=== PATIENT | female | born 1990 | race Caucasian/White ===

== ENCOUNTER 2017-04-24 04:25 | Inpatient (IN) | payer BC, OTHER ==
[2017-04-24] MEDS: DEXTROSE 5%-LACTATED RINGERS 1,000 ML IV SCH (08:00)
[2017-04-24] MEDS ORDERED: AMPICILLIN - 2 GM in SODIUM CHLORIDE 100 ML IVPB ONE (08:10)
[2017-04-24 08:48] LABS: BASOPHIL 0.4 % (0-2.0); EOSINOPHIL 0.3 % (0-4.5); MCH 29.4 pg (25.7-33.7); MCHC 32.8 g/dl (32.0-36.0); MEAN CELL VOLUME 89.7 fl (80-96); MEAN PLT VOLUME 10.4 fl (7.5-11.1); NEUTROPHILS 77.9 % (42.8-82.8); PLATELET COUNT 177 K/MM3 (134-434); WHITE BLOOD COUNT 8.8 K/mm3 (4.0-10.0)
[2017-04-24] MEDS ORDERED: TUBERCULIN PPD 5 TU/0.1ML SYRINGE (IN PATIENT USE ONLY) ID ONE (09:00)
[2017-04-24 09:10] LABS: INR 0.88 (0.82-1.09); PROTHROMBIN TIME (PATIENT) 9.6 SEC (9.98-11.88)
[2017-04-24 09:11] LABS: ANION GAP 10 (8-16); CALCIUM 9.1 mg/dL (8.5-10.1); CO2 25 mmol/L (21-32); CREATININE 0.5 mg/dL (0.55-1.02); GLUCOSE,RANDOM 90 mg/dL (74-106)
[2017-04-24 09:13] LABS: ACTIVATED PTT 28.4 SECONDS (26.9-34.4)
[2017-04-24 09:33] VITALS: BMI 28.4
[2017-04-24] MEDS ORDERED: OXYTOCIN 15 UNITS/ LR 250 ML 250 ML IVPB SCH (11:00)
[2017-04-24] MEDS: AMPICILLIN - 1 GM in SODIUM CHLORIDE 100 ML IVPB SCH ×3 (12:15→20:00)
--- NOTE | 2017-04-24 13:55 | PN ---
Progress Note (short form) - Note Progress Note: 26 yo , @ 40 weeks gestation, admitted for labor pain , seen and evaluate. She c/o moderate discomfort. FHR : Rassuring Widener : + contractions VE : /-1 A/P Post dates Pitocin augmentation Anticipate Analgesia as needed
[2017-04-24] MEDS ORDERED: FENTANYL/BUPIVACAINE/NS/PF - PCEA - 50 ML DISP.SYRIN EP SCH (15:45)
[2017-04-24] MEDS ORDERED: ELECTROLYTE-148 SOLN 500 ML IV SCH ×2 (16:45→17:45)
--- NOTE | 2017-04-24 17:57 | PN ---
Ante-Partal Exam - Subjective Vital Signs: Vital Signs Temperature 98.0 F 04/24/17 16:00 Pulse Rate 71 04/24/17 17:30 Respiratory Rate 16 04/24/17 17:30 Blood Pressure 100/59 04/24/17 17:30 O2 Sat by Pulse Oximetry (%) 96 04/24/17 17:30 Bleeding: No Headache: No Visual changes: No Right upper quadrant pain: No - Contractions Contractions: No Intensity: Mild Monitor Mode: External - Exam during Labor Heart Rate: 150 Variability: Absent Category: I Monitor Decelerations: None Exam: Vaginal Dilatation (cm): 8 Effacement (%): 100 Amniotic Membrane Status: Ruptured Nitrazine Test: Positive Amniotic Fluid: Clear Meconium Staining: Light Presentation: Vertex - Assessment/Plan Assessment/Plan: as above admit labs expect
--- NOTE | 2017-04-24 19:46 | PN ---
Ante-Partal Exam - Subjective Vital Signs: Vital Signs Temperature 98.2 F 04/24/17 18:00 Pulse Rate 73 04/24/17 18:45 Respiratory Rate 18 04/24/17 18:45 Blood Pressure 109/67 04/24/17 18:45 O2 Sat by Pulse Oximetry (%) 100 04/24/17 18:45 Bleeding: No Headache: No Visual changes: No Right upper quadrant pain: No - Contractions Contractions: Yes Regularity: Regular Intensity: Mild/Mod Monitor Mode: External - Exam during Labor Heart Rate: 150 Variability: Moderate Heart Rate Location: Midline Category: I Monitor Accelerations: Present Monitor Decelerations: None Exam: Vaginal Dilatation (cm): 10 Effacement (%): 100 Amniotic Membrane Status: Ruptured Nitrazine Test: Positive Amniotic Fluid: Clear Meconium Staining: Light Presentation: Vertex Station: 0 - Assessment/Plan Assessment/Plan: as above expect continue care
--- NOTE | 2017-04-24 20:35 | PN ---
Ante-Partal Exam - Subjective Vital Signs: Vital Signs Temperature 98.2 F 04/24/17 18:00 Pulse Rate 73 04/24/17 18:45 Respiratory Rate 18 04/24/17 18:45 Blood Pressure 109/67 04/24/17 18:45 O2 Sat by Pulse Oximetry (%) 100 04/24/17 18:45 Bleeding: No Headache: No Visual changes: No Right upper quadrant pain: No - Contractions Contractions: Yes Regularity: Regular Intensity: Mild/Mod Monitor Mode: External - Exam during Labor Heart Rate: 150 Variability: Minimal Heart Rate Location: [facility] Category: I Monitor Accelerations: Present Monitor Decelerations: None Exam: Vaginal Dilatation (cm): 10 Effacement (%): 100 Amniotic Membrane Status: Intact Nitrazine Test: Positive Amniotic Fluid: Clear Meconium Staining: Light Presentation: Vertex - Assessment/Plan Assessment/Plan: as above pushing now continue care expect nvsd
[2017-04-24] MEDS ORDERED: WITCH HAZEL 50% (TUCKS) 40 PAD/JAR PAD TP PRN (21:16)
[2017-04-24] MEDS ORDERED: BENZOCAINE 28 GM HEMORRHOIDAL OINTMENT TP PRN (21:16)
[2017-04-24] MEDS ORDERED: BENZOCAINE 20% 57 GM BOTTLE TP PRN (21:16)
[2017-04-24] MEDS ORDERED: METHYLERGONOVINE MALEATE 0.2 MG/1 ML AMP IM PRN (21:16)
[2017-04-24] MEDS ORDERED: BISACODYL 10 MG SUPP.RECT RC PRN (21:16)
--- NOTE | 2017-04-24 21:18 | PN ---
Delivery - Delivery Maneuvers: reduction of nuchal cord, delivery of posterior arm Type of Anesthesia: Local, Epidural Episiotomy/Laceration: Midline EBL (cc): 300 Delivery, Single - [place] Feeding Plan Initial Plan: Exclusive throughout hospitalization
[2017-04-24] MEDS ORDERED: OXYTOCIN 20 UNITS in 0.9% NS 1,000 ML IV SCH (21:30)
[2017-04-24] MEDS: IBUPROFEN 600 MG TABLET (FP) PO PRN (22:15)
[2017-04-24] MEDS: ACETAMINOPHEN 325 MG TABLET (FP) PO PRN (22:15)
--- NOTE | 2017-04-25 06:15 | PN ---
Post Progress Note Type of Delivery: Vital Signs: Vital Signs Temperature 99.9 F H 04/24/17 22:35 Pulse Rate 90 04/24/17 22:35 Respiratory Rate 18 04/24/17 22:35 Blood Pressure 109/62 04/24/17 22:35 O2 Sat by Pulse Oximetry (%) 100 04/24/17 22:05 Breast Exam: Yes: Soft Uterus: Yes: Fundus Firm Abdomen/GI: Yes: Abdomen soft Lochia: Yes: Rubra Lochia, amount: Small Extremities: Yes: Calves non-tender Perineum: Yes: Intact Activity: Ambulating - Labs Labs: CBC WBC 8.8 K/mm3 (4.0-10.0) 04/24/17 08:30 RBC 4.45 M/mm3 (3.60-5.2) 04/24/17 08:30 Hgb 13.1 GM/dL (10.7-15.3) 04/24/17 08:30 Hct 39.9 % (32.4-45.2) 04/24/17 08:30 MCV 89.7 fl (80-96) 04/24/17 08:30 MCH 29.4 pg (25.7-33.7) 04/24/17 08:30 MCHC 32.8 g/dl (32.0-36.0) 04/24/17 08:30 RDW 15.0 % (11.6-15.6) 04/24/17 08:30 Plt Count 177 K/MM3 (134-434) 04/24/17 08:30 MPV 10.4 fl (7.5-11.1) 04/24/17 08:30 Neutrophils % 77.9 % (42.8-82.8) 04/24/17 08:30 Lymphocytes % 15.0 % (8-40) D 04/24/17 08:30 Monocytes % 6.4 % (3.8-10.2) 04/24/17 08:30 Eosinophils % 0.3 % (0-4.5) 04/24/17 08:30 Basophils % 0.4 % (0-2.0) 04/24/17 08:30 Assessment/Plan pp day one no issyes oob reg diet
[2017-04-25] MEDS: ACETAMINOPHEN 325 MG TABLET (FP) PO PRN ×2 (08:48→14:55)
[2017-04-25] MEDS: IBUPROFEN 600 MG TABLET (FP) PO PRN ×2 (08:49→14:55)
[2017-04-25 09:06] LABS: BASOPHIL 0.4 % (0-2.0); EOSINOPHIL 0.2 % (0-4.5); MCH 29.7 pg (25.7-33.7); MCHC 33.3 g/dl (32.0-36.0); MEAN CELL VOLUME 89.3 fl (80-96); MEAN PLT VOLUME 9.6 fl (7.5-11.1); NEUTROPHILS 76.5 % (42.8-82.8); PLATELET COUNT 152 K/MM3 (134-434); RDW 14.6 % (11.6-15.6); WHITE BLOOD COUNT 8.3 K/mm3 (4.0-10.0)
[2017-04-25] MEDS: DEXTROSE 5%-LACTATED RINGERS 1,000 ML IV SCH (09:23)
[2017-04-25] MEDS ORDERED: DIPHTH,PERTUSS(ACELL),TET 0.5 ML DISP.SYRIN IM ONE (10:00)
[2017-04-25] MEDS ORDERED: SENNOSIDES/DOCUSATE COMBO (SENNA PLUS) TABLET (UD) PO PRN (22:00)
[2017-04-26] MEDS: ACETAMINOPHEN 325 MG TABLET (FP) PO PRN (08:57)
[2017-04-26] MEDS: IBUPROFEN 600 MG TABLET (FP) PO PRN (08:58)
--- NOTE | 2017-04-26 09:49 | PN ---
Post Progress Note - Subjective Subjective: c/o cramps Post Day: 1 Type of Delivery: Vital Signs: Vital Signs Temperature 98.3 F 04/25/17 21:00 Pulse Rate 80 04/25/17 21:00 Respiratory Rate 18 04/25/17 21:00 Blood Pressure 110/69 04/25/17 21:00 O2 Sat by Pulse Oximetry (%) 100 04/24/17 22:05 Breast Exam: Yes: Soft, Other (Bf ). No: Engorged Uterus: Yes: Fundus Firm, Fundus below umbilicus, Non-tender Lochia: Yes: Rubra Lochia, amount: Moderate Extremities: Yes: Calves non-tender Perineum: Yes: Intact, Episiotomy (healing ) Activity: Ambulating - Labs Labs: CBC WBC 8.3 K/mm3 (4.0-10.0) 04/25/17 08:50 RBC 3.79 M/mm3 (3.60-5.2) 04/25/17 08:50 Hgb 11.3 GM/dL (10.7-15.3) D 04/25/17 08:50 Hct 33.8 % (32.4-45.2) D 04/25/17 08:50 MCV 89.3 fl (80-96) 04/25/17 08:50 MCH 29.7 pg (25.7-33.7) 04/25/17 08:50 MCHC 33.3 g/dl (32.0-36.0) 04/25/17 08:50 RDW 14.6 % (11.6-15.6) 04/25/17 08:50 Plt Count 152 K/MM3 (134-434) 04/25/17 08:50 MPV 9.6 fl (7.5-11.1) 04/25/17 08:50 Neutrophils % 76.5 % (42.8-82.8) 04/25/17 08:50 Lymphocytes % 15.3 % (8-40) 04/25/17 08:50 Monocytes % 7.6 % (3.8-10.2) 04/25/17 08:50 Eosinophils % 0.2 % (0-4.5) 04/25/17 08:50 Basophils % 0.4 % (0-2.0) 04/25/17 08:50 Assessment/Plan stable. discharge today
[2017-04-26 10:57] VITALS: BP 109/68; PULSE 70; TEMP 98.6
== END 2017-04-26 13:15 | disposition home or self-care (01) | DRG 560 ==
LOC: JDEL 04:25 → JLDR 08:00 → J3W 22:51
PROVIDERS: ADMIT Obstetrics & Gynecology; ATTEND Obstetrics & Gynecology
PROC: 10E0XZZ Delivery of Products of Conception, External Approach (ICD-10-PCS; principal; 2017-04-24)
PROC: 0W8NXZZ Division of Female Perineum, External Approach (ICD-10-PCS; 2017-04-24)
DX: O48.0 Post-term pregnancy (principal); Z3A.40 40 weeks gestation of pregnancy; Z37.0 Single live birth
CPT/HCPCS: 36415; 59025; 59409; 80048; 85025; 85610; 85730; 86593; 86850; 86900; 86901; 90715